=== PATIENT | female | born 1985 | race Caucasian/White ===

== ENCOUNTER 2018-06-16 11:39 | Outpatient (REF) | payer BC, SELFPAY | END 2018-06-16 11:59 | LOC: LBN 11:39 | PROVIDERS: PCP Nurse Practitioner Family; Visit Provider Nurse Practitioner Family | DX: J02.9 Acute pharyngitis, unspecified (principal) | CPT/HCPCS: 87070 ==

== ENCOUNTER 2019-08-18 08:50 | Outpatient (REF) | payer BC, SELFPAY ==
[2019-08-18 13:12] LABS: Bilirubin Negative (Negative); Blood Moderate (Negative); Clarity Clear (Clear); Glucose Negative (Negative); Ketones Negative (Negative); Leukocyte Esterase Negative (Negative); Nitrite Negative (Negative); Urobilinogen 0.2 EU/dL (Up TO 0.2); pH 6.5 (5-8)
[2019-08-18 14:02] LABS: Bacteria Few HPF (Negative); C & S Indicated? No; Casts Negative LPF (Negative); Crystals Negative HPF (Negative); Epithelial Cells Few HPF (Negative); Mucus Trace (Negative); RBC 0-2 HPF (0-2); WBC 0-2 HPF (0-5)
[2019-08-18 14:15] LABS: ALT 27 U/L (14-59); AST 13 U/L (15-37); Albumin 3.7 g/dL (3.4-5.0); Alkaline Phosphatase 78 U/L (46-116); Anion Gap 8.8 mmol/L (3-11); BUN 16 mg/dL (7-18); Bilirubin, Total 0.5 mg/dL (0.2-1.0); CO2 27.2 mmol/L (21.0-32.0); CREATININE 0.94 mg/dL (0.55-1.02); Calcium 8.8 mg/dL (8.5-10.1); Calculated LDL 120 mg/dL; Chloride 103 mmol/L (98-107); Cholesterol 192 mg/dL (<200); Glucose 92 mg/dL (74-106); HDL Cholesterol 45 mg/dL (40-60); Potassium 4.6 mmol/L (3.5-5.1); Sodium 139 mmol/L (136-145); Total Protein 7.1 g/dL (6.4-8.2); Triglyceride 137 mg/dL (<150)
== END 2019-08-18 09:10 ==
LOC: LBN 08:50
PROVIDERS: Nurse Practitioner; PCP Nurse Practitioner Adult Health; Visit Provider Nurse Practitioner Adult Health
DX: F40.9 Phobic anxiety disorder, unspecified (principal); R03.0 Elevated blood-pressure reading, without diagnosis of hypertension
CPT/HCPCS: 80053; 80061; 81003; 81015; 84443

== ENCOUNTER 2022-07-31 07:32 | Emergency (ER) | payer BC, SELFPAY ==
[2022-07-31 07:36] VITALS: BP 148/77; PULSE 90; RESP 16; TEMP 36.3; O2SAT 96
--- NOTE | 2022-07-31 08:00 | DI.US_ITS ---
Exam(s) US PELVIS LIMITED EXAM: US PELVIS LIMITED CLINICAL HISTORY: RLQ pain and right flank pain. TECHNIQUE: Transabdominal and transvaginal pelvic ultrasound was performed using standard protocol. COMPARISON: CT ABD PELVIS WO CONTRAST from 04/17/2013 FINDINGS: KIDNEYS: The right kidney was evaluated. There is no hydronephrosis. There is a 0.6 cm nonobstructi ng stone in the midpole of the right kidney. No renal mass is seen. Note is made of an echogenic liver suggesting fatty infiltration. OVARIES: The right ovary was evaluated. It measures 2.8 x 2.9 x 2.1 cm. There is normal blood flow. No suspicious cystic or solid lesions are seen on the right ovary. Other: The right lower quadrant was evaluated sonographically. No sonographic evidence to suggest an acute appendicitis is present. IMPRESSION: 1. Right nephrolithiasis. No hydronephrosis. 2. Unremarkable right ovary. 3. No sonographic evidence of appendicitis. 4. Findings were discussed with Earline Cooper at 10:15 a.m. on 07/31/2022. DATA REPOSITORY:
[2022-07-31 08:01] LABS: Bilirubin Negative (Negative); Blood Negative (Negative); Clarity Clear (Clear); Glucose Negative (Negative); Ketones Negative (Negative); Leukocyte Esterase Negative (Negative); Nitrite Negative (Negative); Specific Gravity >= 1.030 (1.005-1.025); Urobilinogen 0.2 EU/dL (Up TO 0.2)
[2022-07-31 08:12] LABS: Bacteria Negative HPF (Negative); C & S Indicated? No; Casts Negative LPF (Negative); Crystals Negative HPF (Negative); Epithelial Cells Moderate HPF (Negative); Mucus Moderate (Negative); RBC 0-2 HPF (0-2); WBC 0-2 HPF (0-5)
--- NOTE | 2022-07-31 08:30 | W.ED.GENAD ---
Discharge Plan Disposition Patient Disposition: Home Condition: Stable Discharge Details Clinical Impression: Kidney stone, Acute flank pain Primary Care Provider: Isa Denson ED Provider: Earline Cooper Home Meds and New Rx's Prescriptions: New ondansetron 4 mg tablet,disintegrating 4 mg PO DAILY 3 Days Qty: 9 0RF Continued Lo Loestrin Fe 1 mg-10 mcg (24)/10 mcg (2) tablet 1 tab PO DAILY metronidazole 0.75 % cream 1 applic topical BID Qty: 45 0RF Discharge Instructions Instructions: Kidney Stones (ED), Flank Pain (ED) Additional Instructions: Strain your urine Take ibuprofen and Tylenol as needed for pain Given a prescription for nausea medication, you may take this as needed Keep her self hydrated, regular fluids Follow-up with urology regarding your kidney stone and return earlier should you have fever, chills, return of pain, or with any new or worsening complaints Referrals: Sukumar Oswald MD [ [facility] STAFF PHYSICIAN] - 2 days Isa Denson, [employer] [Primary Care Provider] - 2 days Medical Decision Making 37-year-old otherwise healthy female presenting with right lower quadrant right flank pain which patient considers similar to prior episode of kidney stone Given prior CT 13 years ago, ordered ultrasound renal, pelvis pulled which do not show acute abnormality, no evidence of acute appendicitis radiology interpretation, no evidence of ureterolithiasis or hydronephrosis but noted right nephrolithiasis first patient will be referred to urology Slight leukocytosis, low suspicion for infectious etiology of patient's complaints Urinalysis within normal limits Negative test Referral to sarah whalen for home I suspect her pain resolved after passing kidney stone, I did consider other etiologies of patient's complaints she has been pain-free throughout this encounter Return precautions reviewed and patient expressed understanding Medical Records Medical records reviewed: Yes I reviewed the patient's medical records. Lab Data Lab results reviewed: Yes I reviewed the patient's lab results. Sign Out No HPI General Date/Time Provider Initiated Documentation: 07/31/22 07:46. HPI Narrative: This 37-year-old female presents with reports of right lower quadrant abdominal pain with radiation into her back. She states that the pain started this morning approximately 6:30 AM, she had strong cramping. She states her pain was similar to an episode of kidney stones 11 years ago from what she can recall. She denies chance of . She denies dysuria or hematuria. She denies any fever or chills. She actually states since 11:00 the pain is completely resolved. She denies known exacerbating or alleviating factors. Related Data Home Medications Medication Instructions Recorded Confirmed norethindrone 1 mg-ethinyl 1 tab PO DAILY 02/27/22 07/31/22 estradiol 10 mcg (24)-iron 10 mcg(2) tablet (Lo Loestrin Fe) metronidazole 0.75 % topical cream 1 applic topical BID #45 grams 07/30/22 07/31/22 ondansetron 4 mg disintegrating 4 mg PO DAILY 3 days #9 tabs 07/31/22 tablet Previous Rx's Medication Instructions Recorded metronidazole 0.75 % topical cream 1 applic topical BID #45 grams 07/30/22 ondansetron 4 mg disintegrating 4 mg PO DAILY 3 days #9 tabs 07/31/22 tablet Allergies Allergy/AdvReac Type Severity Reaction Status Date / Time No Known Allergies Allergy Verified 07/31/22 07:40 General Stated Complaint: Abd Prob MIGUEL: 3 Review of Systems Narrative: Review of systems obtained x7 and negative aside from indication in HPI PFSH All Active Problems (Updated 07/31/22 @ 10:42 by MAICO Daly) Kidney stone (Chronic) Acute flank pain (Acute) Rosacea (Acute) Seasonal allergic rhinitis (Acute) Irritation of nose (Acute) Body mass index (BMI) of 40.1 to 44.9 in adult (Chronic) Is planning diet modification and activity level increase under shovel loader operator guidance Elevated BP without diagnosis of hypertension (Chronic 11/18/12) Home: 120-130/80-90 Phobia (Chronic 11/18/12) [place] (not finger sticks) SEVERE; has used pre-medication successfully in past Medical History (Updated 07/31/22 @ 10:42 by MAICO Daly) Asthma Childhood IUD (intrauterine device) in place Mirena IUD placed 12/2012 Kidney stone (04/24/13) Surgical History [place] teeth extraction Family History Father Diabetes Prostate cancer Hypertension Mother Anxiety Paternal Grandfather Heart disease mid-50s; s/p multiple MIs Paternal Grandmother Diabetes Social History Smoking/Tobacco Use Status: Never Smoking risk assessment performed?: Yes Alcohol Intake: former Year quit: 2019 Drug use: Never Substance use type: does not use Household members: spouse and children Number of Children: 1 Communication Needs: None Education Level: college 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 [place] Pets and animals: Yes Pets and animals: dog(s) Sexually active: Yes Current gender identity: female What is your relationship status?: Panel score (0-1 are the most socially isolated patients): 1 What type of physical activity do you participate in: walking Duration: 45-60 minutes/day Frequency: 3-4 times per week Seatbelt use: always Water heater temp set <120 deg: Yes Working smoke detector in home: Yes Fire extinguisher in home: Yes Carbon monox detector in home: Yes Firearms in home: Yes Firearms unloaded and locked: Yes Do you feel safe at home: Yes Do you feel safe in your relationship?: Yes Female Reproductive History Menstrual control method: progestin IUCD Exam Const General: cooperative, comfortable and no acute distress Eyes Sclera: sclerae normal Resp Effort & Inspection: normal respiratory effort Auscultation: clear to auscultation bilaterally Cardio Rate: regular rate Rhythm: regular rhythm GI Other: No abdominal tenderness on exam, no CVA tenderness, no abdominal bruit or pulsatile mass Skin General skin exam: no rashes or lesions noted Neuro General: patient alert and patient oriented x3 Extrem General: normal to inspection Course Vital Signs Vital signs: Vital Signs Temperature 36.3 C L 07/31/22 07:36 Pulse 90 07/31/22 07:36 Respiratory Rate 16 07/31/22 07:36 Blood Pressure 148/77 H 07/31/22 07:36 Pulse Oximetry 96 07/31/22 07:36 Temperature 36.3 C L 07/31/22 07:36 Temperature Source Temporal Artery Scan 07/31/22 07:36 Pulse 90 07/31/22 07:36 Respiratory Rate 16 07/31/22 07:36 Respiratory Effort 07/31/22 07:41 Blood Pressure 148/77 H 12/13/22 07:36 Blood Pressure Position Sitting 07/31/22 07:36 Pulse Oximetry 96 07/31/22 07:36 Oxygen Delivery Method Room Air 07/31/22 07:36 Oxygen Flow Rate 0 07/31/22 07:36 Pain Level 0 07/31/22 07:36 Lab/Test Results Lab/Test Results: Laboratory Tests Range/Units 07/31/22 07:50 Urine Color (Yellow) Yellow Urine Clarity (Clear) Clear Urine pH (5-8) 6.0 Ur Specific [place] (1.005-1.025) >= 1.030 H Urine Protein (Negative) mg/dL Trace H Urine Ketones (Negative) mg/dL Negative Urine Blood (Negative) Negative Urine Nitrite (Negative) Negative Urine Bilirubin (Negative) Negative Urine Urobilinogen (Up TO 0.2) EU/dL 0.2 Ur Leukocyte Esterase (Negative) Negative Urine RBC (0-2) HPF 0-2 Urine WBC (0-5) HPF 0-2 Ur Epithelial Cells (Negative) HPF Moderate Urine Crystals (Negative) HPF Negative Urine Bacteria (Negative) HPF Negative Urine Casts (Negative) LPF Negative Urine Mucus (Negative) Moderate Ur Culture Indicated? No Urine Glucose (Negative) mg/dL Negative POC- Test(urine) Negative
[2022-07-31 09:27] LABS: Abs Immature Grans 0.05 10^3/uL (0.0-0.06); Absolute Basophil Count 0.07 10^3/uL (0.0-0.2); Absolute Eosinophil Count 0.25 10^3/uL (0.0-0.7); Absolute Lymphocyte Count 2.15 10^3/uL (1.2-3.4); Absolute Monocyte Count 0.58 10^3/uL (0.1-0.8); Absolute Neutrophil Count 8.91 10^3/uL (1.2-6.7); Basophils % 0.6; Eosinophils % 2.1; HCT 46.1 % (36.0-46.0); Immature Grans % 0.4; Lymphocytes % 17.9; MCH 28.1 pg (27.0-33.0); MCHC 32.5 % (32.0-36.0); MCV 86 fL (80-95); MPV 10.9 fL (8.0-11.0); Monocytes % 4.8; Neutrophils % 74.2; Platelet Count 312 10^3/uL (130-400); RBC 5.34 10^6/uL (3.93-5.22); RDW 13.5 % (11.7-14.6); RDW-SD 43.1 fL; WBC 12.01 10^3/uL (4.4-10.8)
[2022-07-31 09:56] LABS: ALT 17 U/L (14-59); AST 13 U/L (15-37); Albumin 3.7 g/dL (3.4-5.0); Alkaline Phosphatase 88 U/L (46-116); Anion Gap 9.8 mmol/L (3-11); BUN 11 mg/dL (7-18); Bilirubin, Total 0.3 mg/dL (0.2-1.0); CO2 26.2 mmol/L (21.0-32.0); Calcium 8.9 mg/dL (8.5-10.1); Chloride 103 mmol/L (98-107); Estimated GFR 74.41 (mL/min/1.73m2); Glucose 106 mg/dL (74-106); Potassium 3.7 mmol/L (3.5-5.1); Sodium 139 mmol/L (136-145); Total Protein 7.9 g/dL (6.4-8.2)
== END 2022-07-31 10:54 | disposition home or self-care (01) ==
PROVIDERS: Emergency Provider Physician Assistant; PCP Nurse Practitioner Adult Health
DX: N20.0 Calculus of kidney (principal); D72.829 Elevated white blood cell count, unspecified; J45.909 Unspecified asthma, uncomplicated
CPT/HCPCS: 36415; 76857; 80053; 81025; 99284; 81003; 81015; 85025

== ENCOUNTER 2022-11-18 18:51 | Emergency (ER) | payer BC, SELFPAY ==
[2022-11-18 18:58] VITALS: BP 178/104; PULSE 88; RESP 16; TEMP 36.7; O2SAT 98
[2022-11-18 19:05] LABS: Bilirubin Negative (Negative); Blood Trace-intact (Negative); Clarity Clear (Clear); Glucose Negative (Negative); Ketones Negative (Negative); Leukocyte Esterase Negative (Negative); Nitrite Negative (Negative); Specific Gravity >= 1.030 (1.005-1.025); Urobilinogen 0.2 mg/dL (Up to 0.2); pH 5.5 (5-8)
[2022-11-18 19:14] LABS: Bacteria Negative HPF (Negative); C & S Indicated? No; Casts Negative LPF (Negative); Crystals Negative HPF (Negative); Epithelial Cells Few HPF (Negative); Mucus Negative (Negative); RBC 0-2 HPF (0-2); WBC 0-2 HPF (0-5)
--- NOTE | 2022-11-18 19:30 | DI.CT_ITS ---
Exam(s) CT ABDOMEN PELVIS W EXAM: CT ABDOMEN PELVIS W CLINICAL HISTORY: RLQ abd/pelvic pain/urinary hesistancy. TECHNIQUE: Imaging Protocol: Axial computed tomography images with coronal and sagittal reformatted images were created and reviewed CONTRAST MATERIAL: Intravenous: Omnipaque-350 100cc Oral: None COMPARISON: CT ABD PELVIS WO CONTRAST from 04/17/2013 FINDINGS: VISUALIZED LUNG BASES: No nodules nor pleural effusions evident. ABDOMEN: There is no ascites. LIVER: Liver is hypodense implying steatosis. Liver is also enlarged. There is a small benign-appea ring 8 mm hypodensity in the upper aspect of the right hepatic lobe which is either cyst or small hem angioma. No dilated intrahepatic ducts. GALLBLADDER/BILIARY: No obvious gallbladder pathology. CBD is not dilated. PANCREAS: No evidence of pancreatic mass nor dilatation of the pancreatic duct. SPLEEN: Spleen size upper normal.. No obvious new intrasplenic lesions. Small splenule lateral to t he spleen is unchanged. Splenic and portal veins are patent. ADRENALS: There are no significant adrenal masses. KIDNEYS:No cysts evident. No solid renal masses. No calculi nor hydronephrosis.. ABDOMINAL AORTA: Abdominal aorta is not enlarged. LYMPH NODES:There is no retroperitoneal nor paraaortic adenopathy. ABDOMINAL WALL: No evidence of significant anterior abdominal wall nor inguinal hernia. GI: There is no evidence of bowel obstruction, free air, nor abscess. PELVIS: GI: Appendix diameter is upper normal.No evidence of sigmoid diverticulitis. LYMPH NODES: There is no intrapelvic nor inguinal adenopathy. REPRODUCTIVE: Uterus appears unremarkable. No abnormal adnexal masses. Small amount of fluid in the right side of the cul-de-sac and left adnexal region, probably female physiologic. URINARY BLADDER: No calculi nor obvious masses evident OSSEOUS: Increased density both sides the sacroiliac joints has increased from 2013 and suspicious fo r sacroiliitis. There is no ankylosis of the SI joints. There are bilateral pars defects at L5. No prominent listhesis. IMPRESSION: 1. Compared to the prior CT scan of 2012 the liver appears hypodense implying steatosis and liver is slightly enlarged. Spleen size upper normal. Stable splenule noted. 2. Small amount of fluid in the right cul-de-sac and left adnexa is probably female physiologic. The re are no ovarian masses evident. RADIATION DOSE DELIVERED: 1,665.74mGy.cm Total DLP DATA REPOSITORY: All CT scans at this facility are submitted to the National Radiology Data Registry (NRDR) Dose Index Registry (DIR) with the [employer] (ACR). RADIATION OPTIMIZATION: All CT scans at this facility use at least one of these dose optimization te chniques: automated exposure control; mA and/or kV adjustment per patient size (includes targeted exa ms where dose is matched to clinical indication); or iterative reconstruction.
--- NOTE | 2022-11-18 19:39 | W.ED.GENAD ---
Discharge Plan Disposition Patient Disposition: Home Discharge Details Clinical Impression: Abdominal pain Primary Care Provider: Isa Denson ED Provider: Sebastian Chavez Home Meds and New Rx's Prescriptions: No Action Lo Loestrin Fe 1 mg-10 mcg (24)/10 mcg (2) tablet 1 tab PO DAILY metronidazole 0.75 % cream 1 applic topical BID Qty: 45 0RF Discharge Instructions Instructions: Ovarian Cyst (ED), Kidney Stones (ED) Additional Instructions: Please follow with your primary care physician. Please return to the emergency department for any worsening symptoms Discharge Data Discharge Date/Time-TO BE ENTERED AT DEPARTURE: 11/18/22 21:29 Medical Decision Making <Margaret Edgar, - Last Filed: 11/20/22 09:10> Dr. Edgar 1914 -- 37-year-old female with a history of kidney stones, asthma and obesity presents for right lower quadrant abdominal pain starting 90 minutes ago now mainly in the suprapubic region. Also admits to nausea and urinary hesitancy. States the pain feels similar to previous kidney stones. Urine test negative. Her blood pressure is hypertensive at 178/104. Remainder vitals are within normal limits and she is afebrile and appears nontoxic. Her abdomen is obese and tender in the right lower quadrant and suprapubic region in addition to the left lower quadrant. She has no CVA tenderness. Differential diagnosis includes kidney stone, UTI, pyelonephritis, appendicitis, ovarian cyst, ovarian torsion, diverticulitis. Patient reports she has a phobia with IVs but is agreeable with plan for IV, screening labs, urinalysis, CT abdomen and pelvis with IV contrast in addition to IV Toradol, IV Zofran and fluid bolus. Urinalysis notes trace blood but no obvious evidence of infection. 1999 -- Case endorsed to Dr. Chavez to follow-up on labs and imaging and final disposition. Dr. Chavez 21: 22 patient resting comfortably asymptomatic feeling better. Labs largely unremarkable. CT abdomen pelvis normal. Patient endorsed that she had a renal ultrasound recently that showed a right-sided intrarenal kidney stone that stone is no longer present consider past kidney stone today. Must also consider ruptured ovarian cyst given pelvic free fluid. Patient denies vaginal bleeding or discharge. Patient is hemodynamically stable. Will follow with primary care. Given home care instructions and return precautions Medical Records Medical records reviewed: Yes I reviewed the patient's medical records. <Sebastian Chavez MD - Last Filed: 11/18/22 21:25> 37-year-old female with a history of kidney stones, asthma and obesity presents for right lower quadrant abdominal pain starting 90 minutes ago now mainly in the suprapubic region. Also admits to nausea and urinary hesitancy. States the pain feels similar to previous kidney stones. Urine test negative. Her blood pressure is hypertensive at 178/104. Remainder vitals are within normal limits and she is afebrile and appears nontoxic. Her abdomen is obese and tender in the right lower quadrant and suprapubic region in addition to the left lower quadrant. She has no CVA tenderness. Differential diagnosis includes kidney stone, UTI, pyelonephritis, appendicitis, ovarian cyst, ovarian torsion, diverticulitis. Patient has a fear and phobia with IVs but is agreeable with plan for IV, screening labs, urinalysis, CT abdomen and pelvis with IV contrast in addition to IV Toradol, IV Zofran and fluid bolus. Urinalysis notes trace blood but no obvious evidence of infection. Case endorsed to Dr. Chun to follow-up on labs and imaging and final disposition. 21: 22 patient resting comfortably asymptomatic feeling better. Labs largely unremarkable. CT abdomen pelvis normal. Patient Dors that she had a renal ultrasound recently that showed a right-sided intrarenal kidney stone that stone is no longer present consider past kidney stone today. Must also consider ruptured ovarian cyst given pelvic free fluid. Patient denies vaginal bleeding or discharge. Patient is hemodynamically stable. Will follow with primary care. Given home care instructions and return precautions HPI <Margaret Edgar DO - Last Filed: 11/20/22 09:10> General Mode of arrival: ambulatory. Date/Time Provider Initiated Documentation: 11/18/22 18:52. Limitations to Documentation: no limitations. Information obtained by: patient. HPI Narrative: Patient is a 37-year-old female with a history of kidney stones, asthma and who presents with right lower quadrant abdominal pain that started 90 minutes ago and now is mainly in her suprapubic region. She states the pain was 10/10 and is now 3/10. She has not taken any medication for pain. She describes the pain as sharp and stabbing. She also states she attempted to urinate and had hesitancy with little amount of urine output. She admits to nausea but denies any vomiting. She denies fever, chest pain, difficulty breathing, genital lesions, vaginal discharge, hematuria, dysuria, back or flank pain. She states she has a history of kidney stones 10 years ago and also in July and states the pain feels similar. She states she is sexually active and denies any known exposure to STDs. Related Data Home Medications Medication Instructions Recorded Confirmed norethindrone 1 mg-ethinyl 1 tab PO DAILY 02/27/22 11/18/22 estradiol 10 mcg (24)-iron 10 mcg(2) tablet (Lo Loestrin Fe) metronidazole 0.75 % topical cream 1 applic topical BID #45 grams 07/30/22 11/18/22 Previous Rx's Medication Instructions Recorded metronidazole 0.75 % topical cream 1 applic topical BID #45 grams 07/30/22 Allergies Allergy/AdvReac Type Severity Reaction Status Date / Time No Known Allergies Allergy Verified 11/18/22 19:05 General Stated Complaint: Abd Prob MIGUEL: 3 Review of Systems <Margaret Edgar DO - Last Filed: 11/20/22 09:10> All systems reviewed & are unremarkable except as noted in HPI and below Constitutional Constitutional: Reports as per HPI, Denies chills and Denies fever(s) Eyes Eyes: Denies blurry vision ENT Ears, Nose, Mouth, and Throat: Denies dizziness, Denies sore throat and Denies throat swelling Cardiovascular Cardiovascular: Denies chest pain and Denies dyspnea Respiratory Respiratory: Denies cough and Denies dyspnea Gastrointestinal Gastrointestinal: Reports abdominal pain, Denies diarrhea, Reports nausea and Denies vomiting Genitourinary Genitourinary: Denies hematuria, Denies dysuria and Reports urinary hesitancy Musculoskeletal Musculoskeletal: Denies back pain and Denies numbness Integumentary/Breasts Skin/Breast: Denies lesions and Denies rash Neurologic Neurologic: Denies dizziness, Denies localized weakness and Denies numbness Allergic/Immunologic Allergic/Immunologic: Denies throat swelling PFS <Margaret Edgar DO - Last Filed: 11/20/22 09:10> All Active Problems (Updated 11/18/22 @ 21:23 by Sebastian Chavez MD) Abdominal pain (Acute) Fatty liver (Acute ~07/2022) Body mass index (BMI) of 40.1 to 44.9 in adult (Chronic) Is planning diet modification and activity level increase under application support developer guidance Elevated BP without diagnosis of hypertension (Chronic 11/18/12) Home: 120-130/80-90 Phobia (Chronic 11/18/12) [place] (not finger sticks) SEVERE; has used pre-medication successfully in past Medical History (Updated 11/18/22 @ 21:23 by Sebastian Chavez MD) Asthma Childhood Irritation of nose IUD (intrauterine device) in place Mirena IUD placed 12/2012 Kidney stone (04/24/13) 2012 & 2021 Rosacea Seasonal allergic rhinitis Surgical History (Updated 11/08/22 @ 08:21 by Margot Skaggs) H/O section (~02/11/21) [place] teeth extraction Family History Father Diabetes Prostate cancer Hypertension Mother Anxiety Paternal Grandfather Heart disease mid-50s; s/p multiple MIs Paternal Grandmother Diabetes Social History Smoking/Tobacco Use Status: Never Smoking risk assessment performed?: Yes Alcohol Intake: former Year quit: 2019 Drug use: Never Substance use type: does not use Household members: spouse and children Number of Children: 1 Communication Needs: None Education Level: college 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[place] Pets and animals: Yes Pets and animals: dog(s) Sexually active: Yes Current gender identity: female What is your relationship status?: Panel score (0-1 are the most socially isolated patients): 1 What type of physical activity do you participate in: walking Duration: 45-60 minutes/day Frequency: 3-4 times per week Seatbelt use: always Water heater temp set <120 deg: Yes Working smoke detector in home: Yes Fire extinguisher in home: Yes Carbon monox detector in home: Yes Firearms in home: Yes Firearms unloaded and locked: Yes Do you feel safe at home: Yes Do you feel safe in your relationship?: Yes Female Reproductive History Menstrual control method: progestin IUCD Exam <Margaret Edgar DO - Last Filed: 11/20/22 09:10> Const General: cooperative, healthy appearing and no acute distress Nutritional Appearance: obese morbidly obese Orientation: alert, awake and oriented x3 HENMT Head: normal to inspection Face and sinus: normal facial exam Eyes General: appearance normal, both eyes and all related structures Neck Neck: normal visual inspection Resp Effort & Inspection: normal respiratory effort and able to speak in complete sentences Auscultation: clear to auscultation bilaterally Cardio Rate: regular rate Rhythm: regular rhythm GI Inspection: normal to inspection and obesity Palpation: soft, not firm, not rigid and nontender Auscultation: hypoactive bowel sounds Back/Spine/Pelvis Back: no CVA tenderness Skin General skin exam: no rashes or lesions noted Neuro General: patient alert, patient awake and patient oriented x3 Cognition: normal cognition Speech: speech normal Motor: muscle tone normal throughout Sensory Exam: no sensory deficits noted Extrem General: normal to inspection, full ROM, capillary refill normal, no calf tenderness bilaterally and no edema Psych Appearance: grossly normal Mental Status: mental status grossly normal Speech and Movement: speech and movement normal Affect: normal affect Course <Margaret Edgar DO - Last Filed: 11/20/22 09:10> Vital Signs Vital signs: Vital Signs Temperature 98.0 F 11/18/22 18:58 Pulse 88 11/18/22 18:58 Respiratory Rate 16 11/18/22 18:58 Blood Pressure 178/104 H 11/18/22 18:58 Pulse Oximetry 98 11/18/22 18:58 Temperature 98.0 F 11/18/22 18:58 Temperature Source Oral 11/18/22 18:58 Pulse 88 11/18/22 18:58 Respiratory Rate 16 11/18/22 18:58 Respiratory Effort Normal 11/18/22 18:58 Blood Pressure 178/104 H 11/18/22 18:58 Blood Pressure Position Sitting 11/18/22 18:58 Pulse Oximetry 98 11/18/22 18:58 Oxygen Delivery Method Room Air 11/18/22 18:58 Oxygen Flow Rate 0 11/18/22 18:58 Pain Level 4 11/18/22 18:58 Lab/Test Results Lab/Test Results: Laboratory Tests Range/Units 11/18/22 19:00 Urine Color (Yellow) Yellow Urine Clarity (Clear) Clear Urine pH (5-8) 5.5 Ur Specific [place] (1.005-1.025) >= 1.030 H Urine Protein (Negative) mg/dL Trace H Urine Ketones (Negative) mg/dL Negative Urine Blood (Negative) Trace-intact H Urine Nitrite (Negative) Negative Urine Bilirubin (Negative) Negative Urine Urobilinogen (Up to 0.2) mg/dL 0.2 Ur Leukocyte Esterase (Negative) Negative Urine RBC (0-2) HPF 0-2 Urine WBC (0-5) HPF 0-2 Ur Epithelial Cells (Negative) HPF Few Urine Crystals (Negative) HPF Negative Urine Bacteria (Negative) HPF Negative Urine Casts (Negative) LPF Negative Urine Mucus (Negative) Negative Ur Culture Indicated? No Urine Glucose (Negative) mg/dL Negative POC- Test(urine) Negative Sign Out <Margaret Edgar DO - Last Filed: 11/20/22 09:10> Sign Out Data: Sign Out Comment: Right lower quadrant pain starting 90 minutes ago. Now mainly suprapubic pain. Also admits to urinary hesitancy and nausea. History of kidney stones and states pain feels similar. Urine test negative. Follow-up on labs and imaging and final disposition. Last updated by Margaret Edgar DO at 11/18/22 19:48
[2022-11-18] MEDS: Normal Saline 1,000 ML 1000 ML IV (20:08)
[2022-11-18] MEDS: Ondansetron 4 MG/2 ML VIAL IVP (20:08)
[2022-11-18] MEDS: Ketorolac 30 MG/ML VIAL IVP (20:08)
[2022-11-18] MEDS: Omnipaque 350 MG/ML 100 ML BTL IJ (20:17)
[2022-11-18] MEDS: Normal Saline - Diluent 50 ML VIAL IJ (20:19)
[2022-11-18] MEDS: Normal Saline Flush 10 ML SYR IVP (20:20)
[2022-11-18 20:50] LABS: Abs Immature Grans 0.06 10^3/uL (0.0-0.06); Absolute Basophil Count 0.06 10^3/uL (0.0-0.2); Absolute Lymphocyte Count 2.18 10^3/uL (1.2-3.4); Absolute Monocyte Count 0.65 10^3/uL (0.1-0.8); Basophils % 0.5; Eosinophils % 1.7; HCT 37.6 % (36.0-46.0); HGB 12.6 g/dL (11.2-15.7); Immature Grans % 0.5; Lymphocytes % 18.9; MCH 28.3 pg (27.0-33.0); MCHC 33.5 % (32.0-36.0); MCV 85 fL (80-95); MPV 10.3 fL (8.0-11.0); Monocytes % 5.6; Neutrophils % 72.8; Platelet Count 303 10^3/uL (130-400); RBC 4.45 10^6/uL (3.93-5.22); RDW 13.5 % (11.7-14.6); RDW-SD 42.4 fL; WBC 11.52 10^3/uL (4.4-10.8)
[2022-11-18 20:56] LABS: Absolute Neutrophil Count 8.39 10^3/uL (1.2-6.7)
[2022-11-18 21:05] LABS: ALT 19 U/L (14-59); AST 9 U/L (15-37); Albumin 3.1 g/dL (3.4-5.0); Alkaline Phosphatase 90 U/L (46-116); BUN 14 mg/dL (7-18); Bilirubin, Total 0.2 mg/dL (0.2-1.0); CREATININE 0.9 mg/dL (0.55-1.02); Calcium 8.5 mg/dL (8.5-10.1); Chloride 106 mmol/L (98-107); Estimated GFR 84.44 (mL/min/1.73m2); Glucose 110 mg/dL (74-106); Potassium 3.8 mmol/L (3.5-5.1); Sodium 141 mmol/L (136-145); Total Protein 6.5 g/dL (6.4-8.2)
--- NOTE | 2022-11-18 21:09 | DI.VRAD_ITS ---
PROCEDURE INFORMATION: Exam: CT Abdomen And Pelvis With Contrast Exam date and time: 11/18/2022 8:19 PM Age: 37 years old Clinical indication: Abdominal pain; Prior surgery; Surgery date: 6+ months; Surgery type: ; Patient HX: Rlq abd/pelvic pain/urinary hesistancy. HX of kidney stone in July; Additional info: R/O kidney stone/appendicitis/colitis TECHNIQUE: Imaging protocol: Computed tomography of the abdomen and pelvis with contrast. Radiation optimization: All CT scans at this facility use at least one of these dose optimization techniques: automated exposure control; mA and/or kV adjustment per patient size (includes targeted exams where dose is matched to clinical indication); or iterative reconstruction. Contrast material: OMNIPAQUE 350; Contrast volume: 100 ml; Contrast route: INTRAVENOUS (IV); COMPARISON: US PELVIS LIMITED 07/31/2022 9:10 AM FINDINGS: Liver: The liver is moderately enlarged and mildly fatty in appearance. No focal hepatic abnormality. Gallbladder and bile ducts: Normal. No calcified stones. No ductal dilation. Pancreas: Normal. No ductal dilation. Spleen: The spleen is mildly enlarged with no focal abnormality. Adrenal glands: Normal. No mass. Kidneys and ureters: Normal. No hydronephrosis. Stomach and bowel: Unremarkable. No obstruction. No mucosal thickening. Appendix: No evidence of appendicitis. Intraperitoneal space: There is a small amount of free fluid in the pelvis. No free air. Vasculature: Unremarkable. No abdominal aortic aneurysm. Lymph nodes: Unremarkable. No enlarged lymph nodes. Urinary bladder: Unremarkable as visualized. Reproductive: Unremarkable as visualized. Bones/joints: Moderate degenerative changes are present in the bilateral sacroiliac joints. Bones are otherwise unremarkable. Soft tissues: Unremarkable. IMPRESSION: 1. Moderately enlarged, fatty liver 2. Mild splenomegaly 3. Small amount of free fluid in the pelvis, likely physiologic Dictated and Authenticated by: Jose Angel Baeza MD. Ordering:ROXANA Robles MD
[2022-11-19 07:16] LABS: Lipase 48 U/L (16-77)
== END 2022-11-18 21:29 | disposition home or self-care (01) ==
PROVIDERS: Physician Assistant; Emergency Provider Emergency Medicine; PCP Nurse Practitioner Adult Health
DX: R10.31 Right lower quadrant pain (principal); R10.813 Right lower quadrant abdominal tenderness; R10.814 Left lower quadrant abdominal tenderness; J45.909 Unspecified asthma, uncomplicated; E66.01 Morbid (severe) obesity due to excess calories; I10 Essential (primary) hypertension; Z87.442 Personal history of urinary calculi
CPT/HCPCS: 80053; 81025; 83690; 96361; 96374; 96375; 99285; 74177; 81003; 81015; 85025; 99284; J1885; J2405; J3490

== ENCOUNTER 2023-04-19 03:12 | Outpatient (CLI) | payer BC, SELFPAY ==
[2023-04-19 09:09] LABS: Anion Gap 9.7 mmol/L (3-11); BUN 14 mg/dL (7-18); CO2 26.3 mmol/L (21.0-32.0); CREATININE 1.1 mg/dL (0.55-1.02); Calcium 9.6 mg/dL (8.5-10.1); Calculated LDL 96 mg/dL (<100); Chloride 102 mmol/L (98-107); Cholesterol 163 mg/dL (<200); Estimated GFR 66.37 (mL/min/1.73m2); Glucose 91 mg/dL (74-106); HDL Cholesterol 45 mg/dL (40-60); Potassium 4.3 mmol/L (3.5-5.1); Sodium 138 mmol/L (136-145); TSH (W/Ref FT4) 2.05 uIU/mL (0.36-3.74); Triglyceride 112 mg/dL (<150)
== END 2023-04-19 03:13 | disposition home or self-care (01) ==
LOC: LBO 03:13
PROVIDERS: PCP Nurse Practitioner Adult Health; Visit Provider Nurse Practitioner Adult Health
DX: I10 Essential (primary) hypertension (principal); E66.01 Morbid (severe) obesity due to excess calories; Z79.899 Other long term (current) drug therapy; Z51.81 Encounter for therapeutic drug level monitoring
CPT/HCPCS: 36415; 80048; 80061; 84443

== ENCOUNTER 2023-07-26 03:20 | Outpatient (CLI) | payer BC, SELFPAY ==
[2023-07-26 09:58] LABS: HCT 44.1 % (36.0-46.0); HGB 14.7 g/dL (11.2-15.7); MCH 28.3 pg (27.0-33.0); MCHC 33.3 % (32.0-36.0); MCV 85 fL (80-95); MPV 10.1 fL (8.0-11.0); Platelet Count 300 10^3/uL (130-400); RBC 5.19 10^6/uL (3.93-5.22); RDW-SD 40.6 fL; WBC 9.39 10^3/uL (4.4-10.8)
[2023-07-26 10:45] LABS: ALT 22 U/L (14-59); AST 12 U/L (15-37); Albumin 3.6 g/dL (3.4-5.0); Alkaline Phosphatase 91 U/L (46-116); Anion Gap 7.2 mmol/L (3-11); BUN 10 mg/dL (7-18); Bilirubin, Total 0.5 mg/dL (0.2-1.0); CO2 26.8 mmol/L (21.0-32.0); CREATININE 1.1 mg/dL (0.55-1.02); Calcium 8.4 mg/dL (8.5-10.1); Chloride 104 mmol/L (98-107); Estimated GFR 65.96 (mL/min/1.73m2); Ferritin 55 ng/mL (8-252); Glucose 97 mg/dL (74-106); Potassium 3.6 mmol/L (3.5-5.1); Sodium 138 mmol/L (136-145); Total Protein 7.3 g/dL (6.4-8.2)
[2023-07-26 20:36] LABS: Hepatitis A Antibody IgM Negative (Negative); Hepatitis B Core Antibody Negative (Negative); Hepatitis B surface Ag Negative (Negative); Hepatitis C Ab w Rflx HCV PCR Negative (Negative)
== END 2023-07-26 03:21 | disposition home or self-care (01) ==
LOC: LBO 03:21
PROVIDERS: Absent Provider Nurse Practitioner Adult Health; PCP Nurse Practitioner Adult Health; Visit Provider Nurse Practitioner Adult Health
DX: I10 Essential (primary) hypertension (principal); K76.0 Fatty (change of) liver, not elsewhere classified; R79.89 Other specified abnormal findings of blood chemistry
CPT/HCPCS: 36415; 80053; 85027; 86704; 86709; 86803; 87340; 82728

== ENCOUNTER 2024-05-01 01:23 | Outpatient (CLI) | payer BC, SELFPAY ==
[2024-05-01 09:20] LABS: Anion Gap 8.9 mmol/L (3-11); BUN 15 mg/dL (7-18); CO2 26.1 mmol/L (21.0-32.0); Calcium 8.7 mg/dL (8.5-10.1); Chloride 104 mmol/L (98-107); Estimated GFR 73.95 (mL/min/1.73m2); Glucose 84 mg/dL (74-106); Potassium 4.4 mmol/L (3.5-5.1); Sodium 139 mmol/L (136-145)
== END 2024-05-01 01:24 | disposition home or self-care (01) ==
LOC: LBO 01:23
PROVIDERS: Absent Provider Nurse Practitioner Adult Health; PCP Nurse Practitioner Adult Health; Referring Provider Nurse Practitioner Adult Health; Visit Provider Nurse Practitioner Adult Health
DX: R79.89 Other specified abnormal findings of blood chemistry (principal)
CPT/HCPCS: 36415; 80048